=== PATIENT | male | born 1995 | race Caucasian/White ===

== ENCOUNTER 2021-01-17 18:13 | Emergency (ER) | payer OTHER ==
[~2021-01-17] VITALS: Ht 180.3 cm; Wt 86.1 kg
[2021-01-17] MEDS ORDERED: NS 1,000 ML IV ONE (18:45)
[2021-01-17] MEDS ORDERED: ONDANSETRON 4MG/2ML VIAL IV ONE (18:45)
--- NOTE | 2021-01-17 19:12 | REPVR ---
PROCEDURE INFORMATION: Exam: CT Head Without Contrast Exam date and time: 01/17/2021 6:48 PM Age: 25 years old Clinical indication: Other: Lightheadedness, off balance TECHNIQUE: Imaging protocol: Computed tomography of the head without contrast. Radiation optimization: All CT scans at this facility use at least one of these dose optimization techniques: automated exposure control; mA and/or kV adjustment per patient size (includes targeted exams where dose is matched to clinical indication); or iterative reconstruction. COMPARISON: No relevant prior studies available. FINDINGS: Brain: Normal. No hemorrhage. Unremarkable white matter. No mass effect. Cerebral ventricles: No ventriculomegaly. Bones/joints: Unremarkable. No acute fracture. Paranasal sinuses: Visualized sinuses are unremarkable. No fluid levels. Mastoid air cells: Visualized mastoid air cells are well aerated. Soft tissues: Unremarkable. IMPRESSION: No acute intracranial abnormality. Electronically signed by: Jamal Patton On 01/17/2021 19:12:10 PM
[2021-01-17 19:53] LABS: BASO % 0.5 % (0.0-1.0); EOS # 0.1 10^3/uL (0.0-0.5); EOS % 1.2 % (0.0-3.0); HEMATOCRIT 46.5 % (42.0-52.0); HEMOGLOBIN 15.7 g/dl (13.5-17.5); LYMPH # 1.8 10^3/uL (1.5-5.0); LYMPH % 29.6 % (24.0-44.0); MEAN CORPUSCULAR HEMOGLOBIN 29.8 pg (27.0-33.0); MEAN CORPUSCULAR HGB CONC 33.8 g/dl (32.0-36.5); MEAN CORPUSCULAR VOLUME 88.2 fl (80.0-96.0); MONO # 0.6 10^3/uL (0.0-0.8); MONO % 9.2 % (2.0-8.0); NEUTROPHILS # 3.6 10^3/uL (1.5-8.5); NEUTROPHILS % 59.3 % (36.0-66.0); PLATELET COUNT, AUTOMATED 241 10^3/uL (150-450); RED BLOOD COUNT 5.27 10^6/uL (4.30-6.10)
[2021-01-17 20:13] VITALS: BP 158/82
[2021-01-17] MEDS ORDERED: MECLIZINE 25 MG TABLET PO ONE (20:15)
[2021-01-17] MEDS ORDERED: MECL1TAB31 PO (20:53)
--- NOTE | 2021-01-18 19:55 | ECGEPIP ---
[facility] - ED Test Date: 2021-01-17 Pat Name: KAYLYN TINOCO Department: Room: - Gender: Male Admission Nurse Coordinator: ty : 1995 Requested By: BELINDA Saba PA-C Order Number: [id number] Reading MD: Hank Klein Measurements Intervals [place] Rate: 74 P: 39 AL: 172 QRS: 68 QRSD: 76 T: 44 QT: 358 QTc: 397 Interpretive Statements Normal sinus rhythm INCOMPLETE RIGHT BUNDLE BRANCH BLOCK NO PRIORS FOR COMPARISON Electronically Signed on 01-18-2021 19:55:28 EST by Hank Klein
== END 2021-01-17 21:08 | disposition home or self-care (01) ==
LOC: M ED 18:13
DX: R42 Dizziness and giddiness (principal); R20.2 Paresthesia of skin; I45.19 Other right bundle-branch block
CPT/HCPCS: 70450; 80047; 83735; 85025; 93005; 96361; 96374; 99284; J2405

== ENCOUNTER 2021-05-01 23:15 | Emergency (ER) | payer OTHER ==
[~2021-05-01] VITALS: Ht 180.3 cm; Wt 81.2 kg
[~2021-05-01 23:15] MED LIST: MECL1TAB31 PO
--- NOTE | 2021-05-02 01:49 | REPVR ---
PROCEDURE INFORMATION: Exam: XR Chest Exam date and time: 05/02/2021 12:58 AM Age: 25 years old Clinical indication: Other: Chest pain TECHNIQUE: Imaging protocol: XR of the chest. Views: 1 view. COMPARISON: No relevant prior studies available. FINDINGS: LUNGS and PLEURAL SPACE: The lungs are symmetrically expanded. Lung volumes are within normal limits. No evidence of peribronchial thickening. There is no consolidation, pneumothorax, or pleural effusion. No evidence of pulmonary vascular redistribution or overt edema. MEDIASTINUM: There is no mediastinal shift or widening. CARDIAC SILHOUETTE: Cardiothoracic ratio is within normal limits. BONY THORAX: No acute findings are seen. IMPRESSION: No radiographic evidence for acute disease in the chest. Electronically signed by: Selvin Fritz On 05/02/2021 01:49:00 AM
[2021-05-02 01:58] LABS: BASO % 0.5 % (0.0-1.0); EOS # 0.1 10^3/uL (0.0-0.5); EOS % 2.2 % (0.0-3.0); HEMATOCRIT 44.8 % (42.0-52.0); HEMOGLOBIN 15.3 g/dl (13.5-17.5); LYMPH # 2.9 10^3/uL (1.5-5.0); MEAN CORPUSCULAR HEMOGLOBIN 30.4 pg (27.0-33.0); MEAN CORPUSCULAR HGB CONC 34.2 g/dl (32.0-36.5); MEAN CORPUSCULAR VOLUME 89.1 fl (80.0-96.0); MONO # 0.7 10^3/uL (0.0-0.8); MONO % 10.5 % (2.0-8.0); NEUTROPHILS # 2.7 10^3/uL (1.5-8.5); NEUTROPHILS % 41.6 % (36.0-66.0); PLATELET COUNT, AUTOMATED 217 10^3/uL (150-450); RED BLOOD COUNT 5.03 10^6/uL (4.30-6.10); WHITE BLOOD COUNT 6.4 10^3/uL (4.0-10.0)
[2021-05-02 02:35] LABS: BLOOD UREA NITROGEN 16 MG/DL (7-18); CALCIUM LEVEL 9.4 MG/DL (8.5-10.1); CARBON DIOXIDE LEVEL 30 MEQ/L (21-32); CHLORIDE LEVEL 104 MEQ/L (98-107); CK-MB VALUE MASS < 1.0 NG/ML (<3.6); CPK CREATINE PHOSPHOKINASE 113 U/L (39-308); CREATININE FOR GFR 0.83 MG/DL (0.70-1.30); GLOMERULAR FILTRATION RATE > 60.0 (>60); GLUCOSE, FASTING 85 MG/DL (70-100); MB/CK RELATIVE INDEX 0.88 (< OR =4); POTASSIUM SERUM 4.1 MEQ/L (3.5-5.1); SODIUM LEVEL 140 MEQ/L (136-145); TROPONIN I < 0.02 NG/ML (< 0.10)
[2021-05-02] MEDS ORDERED: NAPR-837 PO (03:14)
[2021-05-02] MEDS ORDERED: KETOROLAC 30 MG/ML 1ML VIAL IV ONE (03:15)
[2021-05-02 03:36] VITALS: BP 149/90
--- NOTE | 2021-05-04 16:27 | ECGEPIP ---
[facility] - ED Test Date: 2021-05-02 Pat Name: KAYLYN TINOCO Department: Room: - Gender: Male Chucker: THAIS : 1995 Requested By: FARIBA Reyes Order Number: [id number] Reading MD: Chapis Ackerman Measurements Intervals [place] Rate: 55 P: 40 UT: 160 QRS: 72 QRSD: 90 T: 55 QT: 400 QTc: 382 Interpretive Statements Sinus bradycardia with sinus arrhythmia decreased rate 01/17/21 Electronically Signed on 05-04-2021 16:27:36 EDT by Chapis Ackerman
== END 2021-05-02 03:57 | disposition home or self-care (01) ==
LOC: M ED 23:15
DX: R07.89 Other chest pain (principal)
CPT/HCPCS: 71045; 80048; 82550; 82553; 84484; 85025; 85379; 93005; 93041; 94760; 96374; 99285; J1885